=== PATIENT | male | born 1955 | race Caucasian/White ===

== ENCOUNTER 2021-01-09 09:24 | Outpatient (REF) | payer MEDICARE, MEDICAID, SELFPAY ==
--- NOTE | ~2021-01-09 | XR_ITS ---
EXAMINATION: XR SCAPULA, LEFT CLINICAL INFORMATION: Other disorder of bone/shoulder COMPARISON: None TECHNIQUE: Two views of the left scapula. FINDINGS: No fracture, dislocation or bone lesion is seen. The glenohumeral joint is normal. There may be mild arthritis at the acromioclavicular joint. Soft tissues are unremarkable. XR/XR scapula LT IMPRESSION: Mild arthritis at the acromioclavicular joint otherwise unremarkable exam.
[2021-01-09 11:40] LABS: Alanine Aminotransferase 12 U/L (0-40); Albumin Level 4.1 g/dL (3.5-5.0); Alkaline Phosphatase 54 U/L (39-117); Anion Gap 11 (12-20); Aspartate Amino Transferase 16 U/L (5-37); Bilirubin Total 0.7 mg/dL (0.0-1.0); Blood Urea Nitrogen 10 mg/dL (9-16); Calcium 8.8 mg/dL (8.4-10.2); Carbon Dioxide 28 mmol/L (22-29); Chloride 105 mmol/L (96-108); Cholesterol 177 mg/dL; Estimated Glomerular Filt Rate > 60; Glucose Fasting 116 mg/dL (60-99); HDL Cholesterol 76 mg/dL; LDL Cholesterol Calculated 86 mg/dl; Sodium 139 mmol/L (135-145); Total Protein 6.9 g/dL (6.5-8.0); Triglycerides 75 mg/dL
[2021-01-12 18:21] LABS: Testosterone, Free 113.3 pg/mL (35.0-155.0); Testosterone, Total 616 ng/dL (250-1100)
[2021-01-14 10:11] LABS: Percent Free Prostate Spec Ag 14 % (calc) (>25); Prostate Specific Ag Total 7.4 ng/mL (< OR = 4.0)
== END 2021-01-09 09:25 | disposition home or self-care (01) ==
LOC: HO.LAB 09:24
PROVIDERS: PCP Internal Medicine; Visit Provider Internal Medicine
DX: Z12.5 Encounter for screening for malignant neoplasm of prostate (principal); N52.9 Male erectile dysfunction, unspecified; E66.3 Overweight; E78.5 Hyperlipidemia, unspecified; M89.8X1 Other specified disorders of bone, shoulder
CPT/HCPCS: 36415; 73010; 80053; 80061; 84153; 84154; 84402; 84403

== ENCOUNTER 2021-03-08 08:31 | Outpatient (REF) | payer MEDICARE, MEDICAID, SELFPAY ==
--- NOTE | ~2021-03-08 | US_ITS ---
EXAMINATION: US RETROPERITONEAL LIMITED (AORTA) CLINICAL INFORMATION: Personal history of nicotine dependence. COMPARISON: CT abdomen and pelvis 04/21/2006. TECHNIQUE: Valdez-scale, color Doppler and spectral Doppler evaluation of the abdominal aorta. FINDINGS: The aorta is normal. The measurements of the aorta in maximum AP and transverse dimensions respectively are as follows: Proximal: 2.6 x 2.5 cm. Mid: 1.9 x 1.9 cm. Distal: 1.7 x 1.7 cm. PSV: 7.3 cm/s. The measurements of the common iliac arteries in maximum AP and TRV dimensions are as follows: Right: AP: 1.1 cm. TRV: 1.2 cm. Left: AP: 1.2 cm. TRV: 1.1 cm. US/US aorta IMPRESSION: No abdominal aortic aneurysm.
== END 2021-03-08 08:32 | disposition home or self-care (01) ==
LOC: HO.US 08:31
PROVIDERS: PCP Internal Medicine; Visit Provider Internal Medicine
DX: Z87.891 Personal history of nicotine dependence (principal)
CPT/HCPCS: 76775